=== PATIENT | female | born 1990 | race Caucasian/White ===

== ENCOUNTER 2022-12-19 23:13 | Emergency (ER) | payer BC, SELFPAY ==
--- NOTE | ~2022-12-19 | US_ITS ---
EXAMINATION: US PELVIS CLINICAL INFORMATION: Pain. COMPARISON: None available. TECHNIQUE: Ultrasound of the pelvis is performed using both transabdominal and transvaginal transducers along with Doppler. Transvaginal imaging is performed due to inadequate visualization transabdominally. FINDINGS: Uterus: The uterus is anteverted and measures 7.8 x 4.1 x 6.1 cm. There is a small amount of fluid within the cervical canal. The double wall endometrial thickness is 0.9 mm. The uterus is smooth in contour and has normal myometrial echogenicity. No visible fibroid. Adnexa: Both ovaries are visualized. There is normal color flow to the adnexa. There is no ovarian torsion. There is no pelvic ascites or fluid collection. Right ovary measures 3.6 x 2.3 x 2.0 cm. Flow is demonstrated within the right ovary. Left ovary measures 3.2 x 2.4 x 3.7 cm. There is a simple 2.1 x 1.8 x 2.5 cm dominant follicle or small cyst left ovary. Flow is demonstrated within the left ovary. US/US pelvic ovarian doppler IMPRESSION: Small amount of free fluid within the cervical canal of uncertain significance. 2.1 x 1.8 x 2.5 cm dominant follicle or small cyst left ovary. No other significant abnormality seen.
--- NOTE | ~2022-12-19 | US_ITS ---
EXAMINATION: US PELVIS CLINICAL INFORMATION: Pain. COMPARISON: None available. TECHNIQUE: Ultrasound of the pelvis is performed using both transabdominal and transvaginal transducers along with Doppler. Transvaginal imaging is performed due to inadequate visualization transabdominally. FINDINGS: Uterus: The uterus is anteverted and measures 7.8 x 4.1 x 6.1 cm. There is a small amount of fluid within the cervical canal. The double wall endometrial thickness is 0.9 mm. The uterus is smooth in contour and has normal myometrial echogenicity. No visible fibroid. Adnexa: Both ovaries are visualized. There is normal color flow to the adnexa. There is no ovarian torsion. There is no pelvic ascites or fluid collection. Right ovary measures 3.6 x 2.3 x 2.0 cm. Flow is demonstrated within the right ovary. Left ovary measures 3.2 x 2.4 x 3.7 cm. There is a simple 2.1 x 1.8 x 2.5 cm dominant follicle or small cyst left ovary. Flow is demonstrated within the left ovary. US/US pelvic and transvaginal IMPRESSION: Small amount of free fluid within the cervical canal of uncertain significance. 2.1 x 1.8 x 2.5 cm dominant follicle or small cyst left ovary. No other significant abnormality seen.
--- NOTE | ~2022-12-19 | CT_ITS ---
EXAMINATION: CT ABDOMEN AND PELVIS WITH CONTRAST CLINICAL INFORMATION: Pain. COMPARISON: None available. TECHNIQUE: Multidetector volumetric images were obtained from the superior aspect of the liver through the pubic symphysis following administration 85 mL of Omnipaque 350 intravenous contrast. Sagittal and coronal reformatted images were obtained on the technologist's workstation. Oral contrast: None. This CT examination was performed using dose optimization techniques as appropriate, variously including the following: *Automated exposure control *Adjustment of mA and/or kV according to patient size (this includes techniques or standardized protocols for targeted exams where dose is matched to indication/reason for exam; i.e. extremities or head) *Use of iterative reconstruction technique DLP: 421.33 mGy-cm FINDINGS: LUNG BASES: The visualized lung bases are unremarkable. LIVER, GALLBLADDER, AND BILIARY TREE: The liver is normal in size, shape, and attenuation. No focal hepatic lesion or biliary ductal dilatation is present. The gallbladder is unremarkable with no evidence of radiopaque gallstones, gallbladder wall thickening, or obvious pericholecystic inflammatory changes. PANCREAS: Unremarkable. SPLEEN: Unremarkable. ADRENAL GLANDS: Unremarkable. KIDNEYS AND URETERS: The kidneys are normal in size, shape, and attenuation. No hydronephrosis, hydroureter, or calculi seen. No perinephric stranding. BLADDER: Unremarkable. GASTROINTESTINAL TRACT: There are prominent fluid-filled small bowel loops. The appendix is borderline measuring 6 to 7 mm without surrounding infiltration or appendicolith.. ABDOMINAL WALL: No significant hernia is appreciated. LYMPH NODES: Normal. VASCULAR: Unremarkable. PELVIC VISCERA: Unremarkable. OSSEOUS STRUCTURES: There is moderate L5-S1 disc degenerative change. CT/CT abdomen pelvis w IV con IMPRESSION: Prominent fluid-filled small bowel loops is nonspecific but may be seen with a mild enteritis. Borderline appendix without surrounding infiltration or appendicolith. Low suspicion for acute appendicitis. Correlation and follow-up suggested. Fleischner guidelines were followed.
--- NOTE | ~2022-12-19 | CT_ITS ---
EXAMINATION: CT HEAD WITHOUT CONTRAST CLINICAL INFORMATION: Head strike. Seizure. COMPARISON: None available. TECHNIQUE: Contiguous axial imaging was performed from the skull base to vertex without intravenous administration of contrast. This CT examination was performed using dose optimization techniques as appropriate, variously including the following: *Automated exposure control *Adjustment of mA and/or kV according to patient size (this includes techniques or standardized protocols for targeted exams where dose is matched to indication/reason for exam; i.e. extremities or head) *Use of iterative reconstruction technique DLP: 564.19 mGy-cm FINDINGS: The lateral, third and fourth ventricles are normally outlined. The cortical sulci are normally outlined as well. There is no acute territorial defect, hemorrhage or midline shift. The extra-axial spaces are unremarkable. Calvarium: Intact. [place] facial sinuses and mastoids: Clear as visualized. CT/CT head/brain wo IV con IMPRESSION: No acute intracranial pathology.
[2022-12-19 23:15] VITALS: BP 119/66; PULSE 96; RESP 16; TEMP 36.8; O2SAT 96; BMI 25.1
--- NOTE | 2022-12-19 23:32 | ED_ITS ---
HPI - General Adult General Chief complaint: Abdominal Pain Stated complaint: Abdominal Pain Time Seen by Provider: 12/19/22 23:19 Source: patient Mode of arrival: ambulatory Limitations: no limitations History of Present Illness HPI narrative: This is a 32-year-old female without significant medical history presenting to the emergency department for complaints of lower abdominal pain since yesterday, patient reports pain is severe, at rest 5/ 10, with movement 7/10, patient reports yesterday pain was so severe she syncopized, hit her head on a cabinet and then has seizure. She went to [facility] waited for 7 hours and was not seen she was only triage. Patient reports continued pain that is not getting better instead it is worsening. Patient tells me she is not sexually active and is not concerned for . Denies fevers, chills, nausea, vomiting, chest pain, shortness of breath, headache, vision changes. No history of clots Related Data Previous Rx's Medication Instructions Recorded ketorolac 10 mg tablet 10 mg PO TID PRN pain 5 days #15 12/20/22 tabs Allergies Allergy/AdvReac Type Severity Reaction Status Date / Time No Known Allergies Allergy Verified 12/19/22 23:54 Review of Systems 2 Review of Systems: Constitutional : No Weight loss, No Fever, No Chills, No Fatigue, No Malaise ENT/Mouth : No sore throat, No Rhinorrhea Eyes: No Eye Pain, No Swelling, No Redness Cardiovascular : No Chest Pain, No SOB, No Dyspnea on Exertion, No Orthopnea, No Edema, No Palpitations Respiratory : No Cough, No Sputum, No Wheezing Gastrointestinal : No Nausea, No Vomiting, No Diarrhea, No Constipation, + abdominal Pain, No Hematochezia, No Melena Genitourinary : No Dysuria, No Urinary Frequency, No Hematuria, Musculoskeletal : No joint pain, No Myalgias, No Joint Swelling Skin : No Skin Lesions, No rash Neuro : No Weakness, No Numbness, No Dizziness, No Headache Psych : No Anxiety/Panic, No Depression All other systems reviewed and are negative Yes all other systems are reviewed and are negative [facility] Past Medical History Attestation statement: The following information was validated with the patient. Source: old records reviewed and nursing notes reviewed Social History Social History Smoked in Last 30 Days: No Use of substances other than those prescribed or required for medical reasons: Yes Substance Use Type: Marijuana Advance Directives: No Advance Directives Information Provided: No Patient : No Physical Exam ED Vital Signs: Vital Signs - 24 hr 12/19/22 23:15 12/20/22 00:04 Temperature 98.2 F Pulse Rate 96 99 Respiratory Rate 16 16 Blood Pressure 119/66 111/70 Pulse Oximetry 96 96 Oxygen Delivery Method Room Air Room Air BMI result Body Mass Index 25.1 vss Appearance: Alert.? Oriented X3.? No acute distress.? Head: Normocephalic, atraumatic, no step-offs or deformities Eyes: Pupils equal, round and reactive to light.? ENT: Pharynx normal.? Neck: Normal inspection.? Neck supple.? CVS: Normal heart rate and rhythm.? Pulses normal.? Respiratory: No respiratory distress.? Breath sounds normal.? Abdomen: Soft and + diffuse abd discomfort worse in lower region w/ rebound tenderness. Normoactive BS throughout ? Skin: Skin warm and dry.? Normal skin color.? Normal skin turgor.? Extremities: No lower extremity edema.? No calf ttp. 5/5 strength to bilateral upper and lower extremities Neuro: Oriented X 3.? No motor deficit.? No sensory deficit. CN 2-12 intact Course Reevaluation(s) Reevaluation #1: CBC with leukocytosis and left shift. Chemistry with no acute electrolyte abnormalities requiring intervention. Total bilirubin 1.8, patient does have abdominal tenderness to palpation. I ordered CT abdomen and pelvis to further evaluate this.. Lactic acid normal . Urine negative. Pelvic ultrasound and CT of the abdomen and pelvis pending. Sign out to Dr. Doran Time: 00:57 Medications Administered Generic Name Dose Route Start Last Admin Trade Name Freq PRN Reason Stop Dose Admin Sodium Chloride 1,000 mls @ 999 mls/hr 12/20/22 00:00 12/20/22 00:30 Ns IV 12/20/22 01:00 999 mls/hr .[id number] VARINDER Administration Discontinued Medications Generic Name Dose Route Start Last Admin Trade Name Freq PRN Reason Stop Dose Admin Ketorolac Tromethamine 30 mg 12/19/22 23:31 12/19/22 23:55 Ketorolac Tromethamine 15 Mg/Ml Vial IVPUSH 12/19/22 23:32 30 mg ONCE ONE Administration Medical Decision Making Medical Decision Making [facility] Narrative: [id number] 32 year old female presents w/ severe lower abd pain X2 days. Yesterday pain was so bad she syncopized --> seized PE w/ + diffuse abd discomfort worse in lower region w/ rebound tenderness. Normoactive BS throughout ? Concerns for possible ruptured ovarian cyst versus ruptured ectopic versus appendicitis versus diverticulitis versus kidney stone. Unlikely pancreatitis, diverticulitis, obstruction. Syncope likely secondary to sevre pain unlikely due to acs, pe, disection after syncope question myoclonic movements versus seizure. Unlikely intracranial hemorrhage, stroke, posterior stroke. Nonfocal neurological exam Plan labs, imaging, urine. Differential Diagnosis Differential Diagnoses: The differential diagnosis associated with the presentation includes Concerns for possible ruptured ovarian cyst versus ruptured ectopic versus appendicitis versus diverticulitis versus kidney stone. Unlikely pancreatitis, diverticulitis, obstruction. Syncope likely secondary to sevre pain unlikely due to acs, pe, disection after syncope question myoclonic movements versus seizure. Unlikely intracranial hemorrhage, stroke, posterior stroke. Nonfocal neurological exam Admission/Observation Consideration of admission/observation: Escalation of care including admission/observation considered Possible Consult Healthcare Provider Management of the patient was discussed with: Print Line Inspector (Attending ) Lab Data [facility] Lab Attestation statement: I reviewed the patient's lab results. 12/19/22 23:29 12/19/22 23:29 Labs: Lab Results 12/19/22 12/19/22 12/20/22 Range/Units 23:29 23:33 00:46 WBC 13.1 H (4.8-10.8) X10*3/uL RBC 4.37 (4.20-5.50) X10*6/uL Hgb 13.0 (12.0-16.0) g/dl Hct 38.7 (37.0-47.0) % MCV 88.6 (80.0-98.0) fL MCH 29.7 (27.0-33.0) pg MCHC 33.6 (31.0-35.0) g/dl RDW 12.6 (11.0-16.0) % Plt Count 263 (160-400) X10*3/uL MPV 10.9 (9.4-12.3) fL Immature Gran % (Auto) 0.2 (0.0-0.4) % Neut % (Auto) 81.9 H (45-73) % Lymph % (Auto) 12.1 L (20-40) % [place] % (Auto) 4.8 (2-11) % Eos % (Auto) 0.8 (0-4) % Baso % (Auto) 0.2 (0-2) % Lymph # (Auto) 1.6 (1.2-4.9) X10*3/uL [place] # (Auto) 0.6 (0.1-1.2) X10*3/uL Eos # (Auto) 0.1 (0.0-0.4) X10*3/uL Baso # (Auto) 0.0 (0.0-0.2) X10*3/uL Abs Immat Gran (auto) 0.03 (0.00-0.03) X10*3/uL Absolute Neuts (auto) 10.8 H (2.0-8.3) x10*3/uL Absolute Nucleated RBC 0.000 (0.0-0.012) X10*3/uL Nucleated RBC % (auto) 0.0 (0.0-0.2) /100WBC Sodium 138 (135-145) mmol/L Potassium 3.7 (3.3-5.1) mmol/L Chloride 107 (96-108) mmol/L Carbon Dioxide 25 (22-29) mmol/L Anion Gap 10 L (12-20) BUN 11 (9-16) mg/dL Creatinine 0.73 (0.5-1.4) mg/dL Estim Creat Clear Calc 113.6 Estimated GFR > 60 Random Glucose 116 H (60-115) mg/dL Lactic Acid 0.9 (0.5-2.0) mmol/L Calcium 9.1 (8.4-10.2) mg/dL Magnesium 2.0 (1.6-2.6) mg/dL Total Bilirubin 1.8 H (0.0-1.0) mg/dL AST 29 (5-31) U/L ALT 23 (0-31) U/L Alkaline Phosphatase 49 (39-117) U/L Troponin I High Sens < 2.7 (<3.5-17.0) ng/L Total Protein 7.3 (6.5-8.0) g/dL Albumin 4.1 (3.5-5.0) g/dL Lipase 13 (8-78) U/L Beta HCG, Quant < 2 mIU/mL Urine Color Yellow Urine Appearance Cloudy Urine pH 7.5 (5.0-9.0) Ur Specific [place] 1.025 (1.005-1.025) Urine Protein Negative (Neg-Trace) mg/dL Urine Glucose (UA) Negative (Negative) mg/dL Urine Ketones Trace (Negative) mg/dL Urine Blood Negative (Negative) Urine Nitrite Negative (Negative) Ur Leukocyte Esterase Trace H (Negative) Independent Interpretation I performed an independent interpretation of an: Ultrasound and CT Scan Radiology Impression Discussion of test interpretation with radiology: I have reviewed the radiologist's reading. Critical Care Time Critical Care Time Critical Care Time: No Discharge Plan Discharge Clinical Impression: Abdominal pain, Ovarian cyst Patient Disposition: Still a Patient Additional Instructions: Take your medications as prescribed. If you were prescribed antibiotics today, it is important that you take your medication to their entirety, do not skip any doses, do not finish them early. Follow-up with your primary care provider this week. Return to the emergency department with new or worsening symptoms. Such as fevers, chills, chest pain, shortness of breath, nausea, vomiting, dizziness, headache, vision changes, lethargy In case of emergency call 911 Toradol has been sent to your pharmacy, you tolerated this well in the department. Please take this as prescribed do not take this with ibuprofen, or other NSAIDs, do not mix this with alcohol. Side effects of this medication including increased risk for bleeding and possible kidney injury. Prescriptions: New ketorolac 10 mg tablet 10 mg PO TID PRN (Reason: pain) 5 Days Qty: 15 0RF Referrals: Gustavo Acevedo MD [Primary Care Provider] - 2 days Hernán Kessler MD [Physician] - 1 week Stand Alone Forms: Work/School Release
[2022-12-19 23:35] LABS: MANUAL DIFF FLAG NO
[2022-12-19 23:36] LABS: Basophils Percent Auto 0.2 % (0-2); Eosinophils Absolute Auto 0.1 X10*3/uL (0.0-0.4); Eosinophils Percent Auto 0.8 % (0-4); Hematocrit 38.7 % (37.0-47.0); Imm Gran Abs Auto 0.03 X10*3/uL (0.00-0.03); Imm Gran Pct Auto 0.2 % (0.0-0.4); Lymphocytes Absolute Auto 1.6 X10*3/uL (1.2-4.9); Lymphocytes Percent Auto 12.1 % (20-40); Mean Corpuscular HGB Conc 33.6 g/dl (31.0-35.0); Mean Corpuscular Hemoglobin 29.7 pg (27.0-33.0); Mean Corpuscular Volume 88.6 fL (80.0-98.0); Mean Platelet Volume 10.9 fL (9.4-12.3); Monocytes Absolute Auto 0.6 X10*3/uL (0.1-1.2); Monocytes Percent Auto 4.8 % (2-11); Neutrophils Absolute Auto 10.8 x10*3/uL (2.0-8.3); Neutrophils Percent Auto 81.9 % (45-73); Platelet Count 263 X10*3/uL (160-400); Red Blood Count 4.37 X10*6/uL (4.20-5.50); Red Cell Distribution Width 12.6 % (11.0-16.0); White Blood Count 13.1 X10*3/uL (4.8-10.8)
--- NOTE | 2022-12-19 23:36 | ECG_ITS ---
Test Reason : ABD PAIN Blood Pressure : / mmHG Vent. Rate : 079 BPM Atrial Rate : 079 BPM P-R Int : 114 ms QRS Dur : 080 ms QT Int : 358 ms P-R-T Axes : 055 060 041 degrees QTc Int : 410 ms Normal sinus rhythm with sinus arrhythmia RSR' or QR pattern in V1 suggests right ventricular conduction delay Otherwise normal ECG No previous ECGs available Referred By: Adelia Vincent Electronically Signed By:GAURANG SCHMITT MD
[2022-12-19 23:49] LABS: Lactic Acid 0.9 mmol/L (0.5-2.0)
[2022-12-19] MEDS: Ketorolac Tromethamine 15 MG/ML VIAL 30 MG IVPUSH (23:55)
[2022-12-20] LABS: Alanine Aminotransferase 23 U/L (0-31); Albumin Level 4.1 g/dL (3.5-5.0); Alkaline Phosphatase 49 U/L (39-117); Anion Gap 10 (12-20); Aspartate Amino Transferase 29 U/L (5-31); Bilirubin Total 1.8 mg/dL (0.0-1.0); Blood Urea Nitrogen 11 mg/dL (9-16); Calcium 9.1 mg/dL (8.4-10.2); Carbon Dioxide 25 mmol/L (22-29); Chloride 107 mmol/L (96-108); Creatinine Clr Calc Pharmacy 113.6; Estimated Glomerular Filt Rate > 60; Glucose Random 116 mg/dL (60-115); HCG Quantitative < 2 mIU/mL; Lipase 13 U/L (8-78); Potassium 3.7 mmol/L (3.3-5.1); Sodium 138 mmol/L (135-145); Total Protein 7.3 g/dL (6.5-8.0); Troponin-I High Sensitivity < 2.7 ng/L (<3.5-17.0)
[2022-12-20 00:04] VITALS: BP 111/70; PULSE 99; RESP 16; O2SAT 96
--- NOTE | 2022-12-20 00:07 | PC.NURSE ---
Pt ambulated into room, AOx3, Pt reports 4/10 sudden onset lower generalized abd pain, pt reports feeling dizzy, hot, and her vision went slightly dark prior to syncopal episode. Friend at bedside states he witnessed it and stated She went pale, I saw the color drain from her face, and then it looked like she was having a seizure for about 20 seconds, with drool and spastic shaking. Pt denies fever/cp/sob. IV line placed in RAC, labs drawn and sent to lab. Pt awaiting scans, pt aware of plan of care.
--- NOTE | 2022-12-20 00:13 | PC.NURSE ---
Pt off the floor via wheelchair for US. She remains awake, alert and pleasant, conversing in full/complete sentences without distress noted
[2022-12-20] MEDS: 0.9 % Sodium Chloride 1,000 ML 999 ML IV (00:30)
[2022-12-20 00:51] LABS: Appearance Urine Cloudy; Color Urine Yellow; Glucose Urine UA Negative (Negative); Leukocyte Esterase Urine Trace (Negative); Nitrite Urine Negative (Negative); PH 7.5 (5.0-9.0); Specific Gravity - Urine 1.025 (1.005-1.025); UMIC TRIGGER UACC YES; Urine Blood Negative (Negative); Urine Ketones Trace mg/dL (Negative); Urine Protein Negative (Neg-Trace)
[2022-12-20 00:56] LABS: Bacteria Urine Trace (None Seen); Hyaline Casts Urine 0-2 /LPF (0-2); WBC Urine 0-5 /HPF (0-5)
[2022-12-20] MEDS: iohexoL 350 MG/ML 100 ML INFUS..BTL 85 ML IV (01:20)
[2022-12-20 04:00] VITALS: BP 112/67; PULSE 79; RESP 18; O2SAT 97
[2022-12-20] MEDS: traMADoL HCL 50 MG TABLET PO (04:22)
[2022-12-20] MEDS: Dicyclomine HCl 10 MG CAPSULE 20 MG PO (04:22)
== END 2022-12-20 04:55 | disposition home or self-care (01) ==
PROVIDERS: Physician Assistant; Emergency Provider Internal Medicine; PCP Internal Medicine
DX: K52.9 Noninfective gastroenteritis and colitis, unspecified (principal); N83.202 Unspecified ovarian cyst, left side; R55 Syncope and collapse; R10.30 Lower abdominal pain, unspecified; F12.90 Cannabis use, unspecified, uncomplicated
CPT/HCPCS: 36415; 70450; 74177; 76830; 76856; 80053; 81001; 83605; 83690; 83735; 84484; 84702; 85025; 87040; 93005; 93975; 96361; 96374; 99284; 99285; J1885; Q9967